=== PATIENT | female | born 1970 | race Caucasian/White ===

== ENCOUNTER 2025-07-24 09:46 | Emergency (ER) | payer OTHER ==
[~2025-07-24] VITALS: Ht 175.3 cm; Wt 71.4 kg
[2025-07-24] MEDS: LIDOCAINE W/EPINEPHrine 1% 20 ML VIAL SC ONE (11:20)
[2025-07-24] MEDS: RABIES IMMUNE GLOBULIN 1500 INTERNATIONAL UNIT/5 ML VIAL IM.IMMUN ONE (12:33)
[2025-07-24] MEDS: TETANUS/DIPHTH/ACEL. PERTUSSIS 0.5 ML SYR IM ONE (12:34)
[2025-07-24] MEDS: RABIES VACCINE HUMAN 2.5 INTERNATIONAL UNITS/ML VIAL (IMOVAX) IM ONE (12:35)
[2025-07-24] MEDS ORDERED: METR-265 PO (13:45)
[2025-07-24] MEDS ORDERED: DOXY-441 PO (13:45)
[2025-07-24 14:04] VITALS: BP 119/61; TEMP 97.9; O2SAT 99
== END 2025-07-24 14:13 | disposition home or self-care (01) ==
LOC: M ED 09:46
DX: S81.851A Open bite, right lower leg, initial encounter (principal); W55.81XA Bitten by other mammals, initial encounter; Y92.410 Unspecified street and highway as the place of occurrence of the external cause; Y93.02 Activity, running; Y99.9 Unspecified external cause status; Z20.3 Contact with and (suspected) exposure to rabies; Z23 Encounter for immunization; Z88.0 Allergy status to penicillin; Z88.1 Allergy status to other antibiotic agents; Z88.2 Allergy status to sulfonamides